=== PATIENT | female | born 1995 | race Caucasian/White ===

== ENCOUNTER → 2025-08-11 | Outpatient (CLI) | payer OTHER | END | disposition home or self-care (01) | LOC: PRENATAL 13:00 | PROVIDERS: ATTEND Obstetrics & Gynecology Maternal & Fetal Medicine | DX: O26.843 Uterine size-date discrepancy, third trimester (principal); Z14.8 Genetic carrier of other disease; Z3A.17 17 weeks gestation of pregnancy ==